=== PATIENT | female | born 1970 | race Asian ===

== ENCOUNTER 2023-09-01 09:28 | Inpatient (IN) | payer MEDICAID, OTHER ==
[~2023-09-01] VITALS: Ht 147.3 cm; Wt 44.9 kg
[~2023-09-01 09:28] MED LIST: CAT.1 PO; CEL250 PO; CHOL100062 PO; CYCL25CA PO; CYCL25CA24 PO; DENO60DI SQ; DOCU250C14 PO; FERR240T5 PO; HYDR200T80 PO; LABE100T8 PO; LISI-209 PO; MECL-103 PO; MYCO500T PO; PRED1TAB PO
[2023-09-01 09:43] VITALS: BP_SYST 149; PULSE 79; RESP 20; TEMP 98.1; O2SAT 98
[2023-09-01] MEDS ORDERED: ONDANSETRON HCL 4 MG/2 ML VIAL IVP ONE (10:00)
[2023-09-01] MEDS ORDERED: NACL 0.9% 1,000 ML IV ONE (10:00)
[2023-09-01 10:14] LABS: INFLUENZA TYPE A Negative (NEGATIVE); INFLUENZA TYPE B NEGATIVE (NEGATIVE)
[2023-09-01 10:18] LABS: COVID19 ANTIGEN SOFIA FIA POSITIVE (NEGATIVE)
[2023-09-01 10:24] LABS: BASOPHILS % (AUTO) 0.3 % (0.0-2.0); EOSINOPHILS % (AUTO) 0.1 % (0.0-4.0); LYMPHOCYTES # (AUTO) 1.2 K/uL (1.0-5.5); LYMPHOCYTES % (AUTO) 23.6 % (20.5-51.5); MEAN CORPUSCULAR HEMOGLOBIN 32 pg (27-31); MEAN CORPUSCULAR HGB CONC 33 % (32-36); MEAN CORPUSCULAR VOLUME 96 fL (79.0-98.0); MONOCYTES # (AUTO) 0.8 K/uL (0.0-1.0); NEUTROPHILS # (AUTO) 3.1 K/uL (1.8-7.7); PLATELET COUNT (AUTO) 203 K/uL (130-430); RED BLOOD CELL COUNT(AUTO) 3.45 MIL/uL (4.2-6.2); RED CELL DISTRIBUTION WIDTH 13.1 % (9.0-15.0); WHITE BLOOD COUNT (AUTO) 5.1 K/uL (4.8-10.8)
[2023-09-01 10:47] LABS: ALBUMIN 3.5 g/dL (3.4-4.8); CALCIUM 7.5 mg/dL (8.4-11.0); CREATININE 2.3 mg/dL (0.55-1.30); POTASSIUM 4.3 mmol/L (3.5-5.1); TOTAL BILIRUBIN 0.3 mg/dL (0.0-1.0); TOTAL PROTEIN, SERUM 8.3 g/dL (6.4-8.3)
[2023-09-01 11:44] LABS: BILIRUBIN,URINE NEGATIVE (NEGATIVE); CLARITY/URINE CLEAR (CLEAR); COLOR,URINE YELLOW (YELLOW); GLUCOSE,URINE NEGATIVE (NEGATIVE); KETONES,URINE NEGATIVE (NEGATIVE); LEUKOCYTE ESTERASE ,URINE NEGATIVE (NEGATIVE); NITRITE, URINE NEGATIVE (NEGATIVE); PH,URINE 5.5 (5.0-8.0); PROTEIN URINE NEGATIVE (NEGATIVE); UROBILINOGEN,URINE 0.2 (0.2-1.0)
[2023-09-01 11:45] LABS: BLOOD, URINE TRACE (NEGATIVE)
[2023-09-01 12:13] LABS: BACTERIA,URINE FEW /HPF (None Seen); WBC,URINE NONE SEEN /HPF (0-3)
[2023-09-01] MEDS ORDERED: CALCIUM GLUC 1 GM/100ML-NACL 100 ML IV ONE (13:00)
[2023-09-01] MEDS ORDERED: FOLI0.8C2 PO (13:46)
[2023-09-01] MEDS ORDERED: MAGN400T7 PO (15:51)
[2023-09-01] MEDS ORDERED: CLON0.1T PO (16:28)
[2023-09-01] MEDS ORDERED: DENO60DI SQ (16:38)
[2023-09-01] MEDS ORDERED: CHOL100024 PO (16:38)
[2023-09-01] MEDS ORDERED: DOCU250C71 PO (16:38)
[2023-09-01] MEDS ORDERED: CYCL100C PO (16:38)
[2023-09-01 18:52] VITALS: BP_SYST 142; PULSE 80; RESP 16; TEMP 97.7; O2SAT 99
[2023-09-01 20:00] VITALS: BP_SYST 124; PULSE 70; RESP 16; TEMP 97.2; O2SAT 100
[2023-09-02 01:07] VITALS: BP_SYST 122; PULSE 77; RESP 18; TEMP 97.3; O2SAT 100
[2023-09-02 08:30] VITALS: O2SAT 96
[2023-09-02 09:00] VITALS: BP_SYST 131; PULSE 89; RESP 18; TEMP 98.7; O2SAT 96
[2023-09-02] MEDS ORDERED: PRED5TAB PO (10:42)
[2023-09-02] MEDS ORDERED: FOLI-43 PO (11:00)
[2023-09-02] MEDS ORDERED: CYCL25CA24 PO (11:03)
[2023-09-02] MEDS ORDERED: CALC0.258 PO (11:05)
[2023-09-02 11:30] VITALS: BP_SYST 121; PULSE 88; RESP 18; TEMP 98.1; O2SAT 98
[2023-09-02] MEDS ORDERED: calcitrioL 0.25 MCG CAPSULE PO ONE (11:30)
[2023-09-02] MEDS ORDERED: mycophenolate mofetiL 250 MG CAPSULE PO ONE (12:00)
[2023-09-02] MEDS ORDERED: DOCUSATE SODIUM 100 MG CAPSULE PO ONE (12:00)
[2023-09-02] MEDS ORDERED: predniSONE 5 MG TABLET PO ONE (12:00)
[2023-09-02] MEDS ORDERED: cloNIDine HCL 0.1 MG TABLET PO ONE (12:00)
[2023-09-02] MEDS ORDERED: lisinopriL 5 MG TABLET PO ONE (12:00)
[2023-09-02] MEDS: NACL 0.9% 1,000 ML IV SCH ×2 (12:56→20:46)
[2023-09-02 16:53] VITALS: BP_SYST 111; PULSE 74; RESP 17; TEMP 98.4; O2SAT 96
[2023-09-02 20:25] VITALS: BP_SYST 116; PULSE 67; RESP 18; TEMP 97.8
[2023-09-02] MEDS: FOLIC ACID 1 MG TABLET PO SCH (20:46)
[2023-09-02] MEDS: FERROUS GLUCONATE 324 MG TABLET PO SCH (20:46)
[2023-09-02] MEDS: lisinopriL 5 MG TABLET PO SCH (20:46)
[2023-09-02] MEDS: mycophenolate mofetiL 250 MG CAPSULE PO SCH (20:47)
[2023-09-03 00:42] VITALS: BP_SYST 131; PULSE 67; RESP 16; TEMP 97; O2SAT 99
[2023-09-03] MEDS: NACL 0.9% 1,000 ML IV SCH ×2 (06:57→18:30)
[2023-09-03 07:38] LABS: BASOPHILS % (AUTO) 0.2 % (0.0-2.0); EOSINOPHILS % (AUTO) 0.1 % (0.0-4.0); HEMATOCRIT 30.5 % (36-48); HEMOGLOBIN 10.1 g/dL (12.0-16.0); LYMPHOCYTES # (AUTO) 1.2 K/uL (1.0-5.5); MEAN CORPUSCULAR HEMOGLOBIN 32 pg (27-31); MEAN CORPUSCULAR HGB CONC 33 % (32-36); MEAN CORPUSCULAR VOLUME 95 fL (79.0-98.0); MONOCYTES # (AUTO) 0.5 K/uL (0.0-1.0); MONOCYTES % (AUTO) 17.4 % (1.7-9.3); NEUTROPHILS # (AUTO) 1.3 K/uL (1.8-7.7); NEUTROPHILS % (AUTO) 41.3 % (40.0-70.0); PLATELET COUNT (AUTO) 191 K/uL (130-430); RED CELL DISTRIBUTION WIDTH 13.3 % (9.0-15.0)
[2023-09-03 07:47] LABS: ALBUMIN 2.7 g/dL (3.4-4.8); CALCIUM 7.3 mg/dL (8.4-11.0); CREATININE 1.18 mg/dL (0.55-1.30); PHOSPHORUS 3.1 mg/dL (2.7-4.5); POTASSIUM 5.1 mmol/L (3.5-5.1); TOTAL BILIRUBIN 0.2 mg/dL (0.0-1.0); TOTAL PROTEIN, SERUM 6.6 g/dL (6.4-8.3)
[2023-09-03 08:22] VITALS: BP_SYST 143; PULSE 64; RESP 18; TEMP 97.5; O2SAT 99
[2023-09-03] MEDS: lisinopriL 5 MG TABLET PO SCH ×2 (08:37→20:53)
[2023-09-03] MEDS: FERROUS GLUCONATE 324 MG TABLET PO SCH ×2 (08:37→20:59)
[2023-09-03] MEDS: FOLIC ACID 1 MG TABLET PO SCH ×2 (08:38→20:53)
[2023-09-03] MEDS ORDERED: calcitrioL 0.25 MCG CAPSULE PO SCH (09:00)
[2023-09-03] MEDS ORDERED: cloNIDine HCL 0.1 MG TABLET PO SCH (09:00)
[2023-09-03] MEDS ORDERED: mycophenolate mofetiL 250 MG CAPSULE PO SCH (09:00)
[2023-09-03] MEDS ORDERED: predniSONE 5 MG TABLET PO SCH (09:00)
[2023-09-03] MEDS ORDERED: DOCUSATE SODIUM 100 MG CAPSULE PO SCH (09:00)
[2023-09-03 12:00] VITALS: BP_SYST 152; PULSE 82; RESP 16; TEMP 98; O2SAT 97
[2023-09-03] MEDS ORDERED: MAGN400T10 PO (13:27)
[2023-09-03] MEDS ORDERED: NIRM1TAB PO (13:27)
[2023-09-03] MEDS ORDERED: MAGNESIUM SULFATE IN WATER 100 ML IV ONE (14:00)
[2023-09-03 16:00] VITALS: BP_SYST 139; PULSE 66; RESP 15; TEMP 98.2; O2SAT 98
[2023-09-03 20:21] VITALS: BP_SYST 147; PULSE 72; RESP 18; TEMP 97.6; O2SAT 98
[2023-09-03] MEDS: mycophenolate mofetiL 250 MG CAPSULE PO SCH (20:57)
[2023-09-03] MEDS ORDERED: MAGNESIUM OXIDE 400 MG TABLET PO SCH (21:00)
[2023-09-03 23:35] VITALS: BP_SYST 159; PULSE 72; RESP 20; TEMP 96.8; O2SAT 98
[2023-09-04] VITALS: BP_SYST 159; PULSE 72; RESP 20; TEMP 96.8; O2SAT 98
== END 2023-09-04 00:01 | disposition home or self-care (01) | DRG 177 ==
LOC: SED 09:28 → STU 12:44
PROVIDERS: ADMIT Preventive Medicine Preventive Medicine/Occupational Environmental Medicine; ATTEND Preventive Medicine Preventive Medicine/Occupational Environmental Medicine
PROC: XW033E5 Introduction of Remdesivir Anti-infective into Peripheral Vein, Percutaneous Approach, New Technology Group 5 (ICD-10-PCS; principal; 2023-09-03)
DX: U07.1 COVID-19 (principal); N17.0 Acute kidney failure with tubular necrosis; E87.1 Hypo-osmolality and hyponatremia; E83.51 Hypocalcemia; D64.9 Anemia, unspecified; I12.9 Hypertensive chronic kidney disease with stage 1 through stage 4 chronic kidney disease, or unspecified chronic kidney disease; N18.9 Chronic kidney disease, unspecified; E83.42 Hypomagnesemia; E86.1 Hypovolemia; E86.0 Dehydration; R19.7 Diarrhea, unspecified
CPT/HCPCS: 36415; 71045; 80053; 81000; 83690; 83735; 84100; 85025; 96361; 96365; 96375; 99291; G0378; J2405; J3475; J7050; J7502; J7512; J7515; J7517